=== PATIENT | male | born 1955 | race Two or more races ===

== ENCOUNTER 2017-12-19 18:13 | Emergency (ER) | payer OTHER ==
[~2017-12-19] VITALS: Ht 167.6 cm; Wt 84.8 kg
[2017-12-19 18:54] VITALS: BP 168/83
== END 2017-12-19 20:45 | disposition home or self-care (01) ==
LOC: ER 18:13
DX: M25.511 Pain in right shoulder (principal); M54.2 Cervicalgia; M25.552 Pain in left hip; R51 Headache; I10 Essential (primary) hypertension; E11.9 Type 2 diabetes mellitus without complications; Z88.0 Allergy status to penicillin; W11.XXXA Fall on and from ladder, initial encounter; Y93.89 Activity, other specified; Y92.89 Other specified places as the place of occurrence of the external cause; Y99.8 Other external cause status
CPT/HCPCS: 70450; 72125